=== PATIENT | male | born 1940 | race African-American/Black ===

== ENCOUNTER 2017-10-03 10:37 | Inpatient (IN) ==
[2017-10-03] MEDS ORDERED: PANTOPRAZOLE 40 MG VIAL IV STA (10:49)
[2017-10-03] MEDS ORDERED: PANTOPRAZOLE 40 MG VIAL IV ONE (10:57)
[2017-10-03] MEDS ORDERED: SODIUM CHLORIDE 0.9% 1,000 ML IV STA (11:02)
[2017-10-03 12:01] LABS: Basophils % 0.1 % (0.0-0.8); Hematocrit 28.5 VOL% (42.0-52.0); Hemoglobin 8.8 GM/DL (14.0-18.0); Immature Granulocytes % 0.6 %; Immature Granulocytes Absolute 0.09 #; Lymphocytes # 0.5 10*3/uL (1.4-4.0); Lymphocytes % 3.5 % (21.2-54.2); Mean Corpuscular HGB Conc 30.9 GM/DL (32-36); Mean Corpuscular Hemoglobin 31 PG (27-34); Mean Corpuscular Volume 101.8 FL (87-102); Mean Platelet Volume 10.7 FL (9.6-12.0); Monocytes # 0.3 10*3/uL (0.11-0.8); Monocytes % 2.4 % (1.7-12.7); Neutrophils # 13.1 10*3/uL (1.4-7.4); Neutrophils % 93.4 % (38.7-73.9); Platelet Count 499 T/CUMM (130-400)
[2017-10-03 12:09] LABS: PT Patient Result 10.6 SECS; Partial Thromboplastin Time 24.9 SECS (0-40)
[2017-10-03 12:20] LABS: Anisocytosis 1+; Hypochromasia 1+; Lymphocytes 4 % (20-55); Macrocytosis 1+; Segmented Neutrophils 95 % (50-85); Stomatocytes Slight; Total Cells Counted 100
[2017-10-03 12:21] LABS: Platelet Estimate Increased
[2017-10-03 12:25] LABS: Albumin 2.5 G/DL (3.4-5.0); Bilirubin,Total 0.4 MG/DL (0.2-1.0); Calcium 8.5 MG/DL (8.5-10.1); Osmolality,Calculated 303.1 MOS/KG (273-304); Total Protein 6.8 G/DL (6.4-8.3)
[2017-10-03] MEDS ORDERED: hydrALAZINE 20 MG/1 ML VIAL IV PRN (16:06)
[2017-10-03] MEDS ORDERED: ONDANSETRON 4 MG/2 ML VIAL IV PRN (16:37)
[2017-10-03] MEDS ORDERED: GLUCAGON 1 MG VIAL IM PRN (16:38)
[2017-10-03] MEDS ORDERED: DEXTROSE 50% 25 GM/50 ML VIAL IV PRN (16:38)
[2017-10-03 18:21] LABS: Hematocrit 28.4 VOL% (42.0-52.0); Hemoglobin 8.4 GM/DL (14.0-18.0)
[2017-10-03] MEDS: INSULIN REGULAR 100 UNIT/ML SUBCUT SCH (22:21)
[2017-10-03] MEDS: PANTOPRAZOLE INJ 200 MG in SODIUM CHLORIDE 0.9% 250 ML IV SCH (22:46)
[2017-10-03] MEDS: SODIUM CHLORIDE 0.9% 1,000 ML IV SCH (22:47)
[2017-10-04] MEDS: INSULIN REGULAR 100 UNIT/ML SUBCUT SCH ×5 (00:30→23:56)
[2017-10-04 01:26] LABS: Apearance,Urine CLEAR (Clear); Bilirubin,Urine Negative (Negative); Blood, Urine Negative (Negative); Glucose,Urine (UA) 50 mg/dL (Negative); Ketones,Urine Negative (Negative); Mucus,Urine Occasional /LPF (Occasional); Nitrite,Urine Negative (Negative); Protein,Urine Negative; RBC,Urine <1 /HPF (0-4); Squamous Epithelial Cell,Urine Occasional /HPF (0-10); Urine Color Yellow (Yellow); Urine Specific Gravity 1.014 (1.001-1.035); Urine Urobilinogen < 2.0 EU/DL (0.2-1.0); WBC,Urine 2 /HPF (0-6)
[2017-10-04 01:58] LABS: Basophils % 0.4 % (0.0-0.8); Eosinophils % 0.4 % (0.00-10.9); Hematocrit 25.8 VOL% (42.0-52.0); Hemoglobin 7.5 GM/DL (14.0-18.0); Immature Granulocytes % 0.7 %; Immature Granulocytes Absolute 0.07 #; Mean Corpuscular HGB Conc 29.1 GM/DL (32-36); Mean Corpuscular Hemoglobin 30 PG (27-34); Mean Platelet Volume 10.9 FL (9.6-12.0); Monocytes # 0.9 10*3/uL (0.11-0.8); Monocytes % 8.6 % (1.7-12.7); NRBC # 0.02 10*3/uL; Neutrophils # 8.2 10*3/uL (1.4-7.4); Neutrophils % 79.9 % (38.7-73.9); Platelet Count 440 T/CUMM (130-400); Red Blood Count 2.48 MC/CUMM (3.8-5.5); White Blood Count 10.2 T/CUMM (4-12)
[2017-10-04] MEDS: METOPROLOL TARTRATE 25 MG TABLET PEG SCH ×2 (09:14→21:13)
[2017-10-04] MEDS: DILTIAZEM 60 MG TABLET PO SCH ×3 (09:14→21:13)
[2017-10-04] MEDS: QUEtiapine 25 MG TABLET PEG SCH ×2 (09:14→21:13)
[2017-10-04] MEDS: MEMANTINE 10 MG TABLET PER TUBE SCH ×2 (09:14→21:13)
[2017-10-04] MEDS: PANTOPRAZOLE INJ 200 MG in SODIUM CHLORIDE 0.9% 250 ML IV SCH (17:43)
[2017-10-04] MEDS: SODIUM CHLORIDE 0.9% 1,000 ML IV SCH ×2 (17:44→21:12)
[2017-10-05] MEDS: DILTIAZEM 60 MG TABLET PO SCH ×4 (01:55→20:35)
[2017-10-05 05:24] LABS: Basophils % 0.3 % (0.0-0.8); Eosinophils # 0.2 10*3/uL (0.0-0.87); Eosinophils % 2.2 % (0.00-10.9); Hematocrit 22.9 VOL% (42.0-52.0); Immature Granulocytes % 0.6 %; Immature Granulocytes Absolute 0.05 #; Lymphocytes % 12.8 % (21.2-54.2); Mean Corpuscular HGB Conc 30.6 GM/DL (32-36); Mean Corpuscular Hemoglobin 31 PG (27-34); Mean Corpuscular Volume 101.3 FL (87-102); Mean Platelet Volume 10.4 FL (9.6-12.0); Monocytes # 0.6 10*3/uL (0.11-0.8); Monocytes % 8.2 % (1.7-12.7); Neutrophils # 5.9 10*3/uL (1.4-7.4); Neutrophils % 75.9 % (38.7-73.9); Platelet Count 416 T/CUMM (130-400); Red Blood Count 2.26 MC/CUMM (3.8-5.5); Red Cell Distribution Width 16.8 % (9.3-17.3); White Blood Count 7.7 T/CUMM (4-12)
[2017-10-05 05:52] LABS: Calcium 8.1 MG/DL (8.5-10.1); Osmolality,Calculated 298.1 MOS/KG (273-304)
[2017-10-05] MEDS ORDERED: SODIUM CHLORIDE 0.9% 1,000 ML IV PRN ×2 (06:40→07:30)
[2017-10-05] MEDS: INSULIN REGULAR 100 UNIT/ML SUBCUT SCH ×3 (07:16→17:09)
[2017-10-05] MEDS ORDERED: LIDOCAINE 2% 5 ML VIAL ONE (09:00)
[2017-10-05] MEDS ORDERED: PROPOFOL 200 MG/20 ML VIAL IV ONE (09:00)
[2017-10-05] MEDS: METOPROLOL TARTRATE 25 MG TABLET PEG SCH ×2 (10:38→20:36)
[2017-10-05] MEDS: LANSOPRAZOLE ODT 30 MG TABLET PEG SCH ×2 (10:38→20:36)
[2017-10-05] MEDS: MEMANTINE 10 MG TABLET PER TUBE SCH ×2 (10:38→20:36)
[2017-10-05] MEDS: QUEtiapine 25 MG TABLET PEG SCH ×2 (10:38→20:36)
[2017-10-05] MEDS: FERROUS SULFATE 325 MG TABLET PO SCH ×2 (10:38→20:36)
[2017-10-05] MEDS: SODIUM CHLORIDE 0.9% 1,000 ML IV SCH ×2 (18:28→18:46)
[2017-10-06] MEDS: INSULIN REGULAR 100 UNIT/ML SUBCUT SCH ×4 (01:13→18:27)
[2017-10-06] MEDS: DILTIAZEM 60 MG TABLET PO SCH ×4 (01:13→21:29)
[2017-10-06 06:44] LABS: Basophils % 0.2 % (0.0-0.8); Eosinophils # 0.3 10*3/uL (0.0-0.87); Eosinophils % 3.4 % (0.00-10.9); Hematocrit 28.4 VOL% (42.0-52.0); Hemoglobin 9.1 GM/DL (14.0-18.0); Immature Granulocytes % 0.5 %; Immature Granulocytes Absolute 0.04 #; Lymphocytes # 0.9 10*3/uL (1.4-4.0); Lymphocytes % 10.5 % (21.2-54.2); Mean Corpuscular Hemoglobin 31 PG (27-34); Mean Corpuscular Volume 95.3 FL (87-102); Mean Platelet Volume 10.4 FL (9.6-12.0); Monocytes # 0.7 10*3/uL (0.11-0.8); Monocytes % 7.6 % (1.7-12.7); Neutrophils # 6.6 10*3/uL (1.4-7.4); Neutrophils % 77.8 % (38.7-73.9); Platelet Count 351 T/CUMM (130-400); Red Blood Count 2.98 MC/CUMM (3.8-5.5); Red Cell Distribution Width 17.6 % (9.3-17.3); White Blood Count 8.5 T/CUMM (4-12)
[2017-10-06 07:44] LABS: Calcium 7.8 MG/DL (8.5-10.1); Osmolality,Calculated 295.7 MOS/KG (273-304); Potassium 4.1 MMOL/L (3.5-5.1); Prealbumin 18.4 MG/DL (20-40)
[2017-10-06] MEDS: SODIUM CHLORIDE 0.9% 1,000 ML IV SCH (08:51)
[2017-10-06] MEDS: LEVOFLOXACIN INJ 500 MG in PREMIX 1 EACH IV SCH (08:51)
[2017-10-06] MEDS: QUEtiapine 25 MG TABLET PEG SCH ×2 (08:52→21:29)
[2017-10-06] MEDS: LANSOPRAZOLE ODT 30 MG TABLET PEG SCH ×2 (08:52→21:30)
[2017-10-06] MEDS: METOPROLOL TARTRATE 25 MG TABLET PEG SCH ×2 (08:52→21:30)
[2017-10-06] MEDS: MEMANTINE 10 MG TABLET PER TUBE SCH ×2 (08:52→21:30)
[2017-10-06] MEDS: FERROUS SULFATE 300 MG/5 ML UDCUP PEG SCH ×2 (08:52→21:30)
[2017-10-06] MEDS: metFORMIN 500 MG TABLET PO SCH (18:27)
[2017-10-07] MEDS: INSULIN REGULAR 100 UNIT/ML SUBCUT SCH ×3 (01:31→12:51)
[2017-10-07] MEDS: SODIUM CHLORIDE 0.9% 1,000 ML IV SCH ×2 (01:48→12:51)
[2017-10-07] MEDS: DILTIAZEM 60 MG TABLET PO SCH ×2 (02:59→08:24)
[2017-10-07 07:13] LABS: Basophils % 0.2 % (0.0-0.8); Eosinophils # 0.3 10*3/uL (0.0-0.87); Eosinophils % 4.7 % (0.00-10.9); Hematocrit 29.6 VOL% (42.0-52.0); Hemoglobin 9.4 GM/DL (14.0-18.0); Immature Granulocytes % 0.6 %; Immature Granulocytes Absolute 0.04 #; Lymphocytes # 0.8 10*3/uL (1.4-4.0); Lymphocytes % 12.7 % (21.2-54.2); Mean Corpuscular HGB Conc 31.8 GM/DL (32-36); Mean Corpuscular Hemoglobin 31 PG (27-34); Mean Corpuscular Volume 96.4 FL (87-102); Mean Platelet Volume 10.3 FL (9.6-12.0); Monocytes # 0.5 10*3/uL (0.11-0.8); Monocytes % 7.7 % (1.7-12.7); Neutrophils # 4.9 10*3/uL (1.4-7.4); Neutrophils % 74.1 % (38.7-73.9); Platelet Count 297 T/CUMM (130-400); Red Blood Count 3.07 MC/CUMM (3.8-5.5); Red Cell Distribution Width 16.5 % (9.3-17.3); White Blood Count 6.6 T/CUMM (4-12)
[2017-10-07 07:46] LABS: Albumin 1.8 G/DL (3.4-5.0); Bilirubin,Total 0.6 MG/DL (0.2-1.0); Calcium 7.9 MG/DL (8.5-10.1); Potassium 4.7 MMOL/L (3.5-5.1); Total Protein 4.9 G/DL (6.4-8.3)
[2017-10-07] MEDS: metFORMIN 500 MG TABLET PO SCH (08:23)
[2017-10-07] MEDS: QUEtiapine 25 MG TABLET PEG SCH (08:23)
[2017-10-07] MEDS: MEMANTINE 10 MG TABLET PER TUBE SCH (08:24)
[2017-10-07] MEDS: FERROUS SULFATE 300 MG/5 ML UDCUP PEG SCH (08:24)
[2017-10-07] MEDS: LANSOPRAZOLE ODT 30 MG TABLET PEG SCH (08:25)
[2017-10-07] MEDS: METOPROLOL TARTRATE 25 MG TABLET PEG SCH (08:25)
[2017-10-07] MEDS: LEVOFLOXACIN INJ 500 MG in PREMIX 1 EACH IV SCH (08:26)
[2017-10-07 12:43] VITALS: BP 128/68
== END 2017-10-07 12:43 | disposition hospice, home (50) | DRG 381 ==
LOC: N.ED 10:37 → N.EDINP 16:31 → N.5E 18:58